=== PATIENT | female | born 1945 | race Caucasian/White ===

== ENCOUNTER 2018-12-27 12:48 | Emergency (ER) | payer MEDICARE, BC ==
[~2018-12-27] VITALS: Ht 165.1 cm; Wt 52.3 kg
[2018-12-27 13:02] VITALS: BP 124/88; Ht 165.1 cm; Wt 52.3 kg
[2018-12-27] MEDS ORDERED: NORVASC10 MG PO (13:05)
[2018-12-27] MEDS ORDERED: ATIVAN1 MG PO (13:05)
[2018-12-27] MEDS ORDERED: HYDROXYCHLOROQUINE PO (13:06)
[2018-12-27] MEDS ORDERED: TOPROL XL100 MG PO (13:07)
[2018-12-27] MEDS ORDERED: EFFEXOR75 MG PO (13:08)
[2018-12-27 13:59] LABS: BASOPHILS 0.4 % (0-2); HEMATOCRIT 43.3 % (36.0-48.0); HEMOGLOBIN 14.8 g/dL (12-16); IMMATURE GRANULOCYTES 0.2 % (0-5); LYMPHOCYTES 23.1 % (15-50); MCH 34.8 pg (26.0-34.0); MCHC 34.2 g/dL (31.0-37.0); MCV 101.9 fL (80.0-100.0); MEAN PLATELET VOLUME 9.4 fL (7.4-10.4); MONOCYTES 8.1 % (2-11); NEUTROPHILS 66.2 % (40-80); PLATELET COUNT 180 10x3/uL (130-400); RBC 4.25 10x6/uL (4.00-5.40); RDW 13.4 % (11.5-14.5); WBC 5.6 10x3/uL (4.8-10.8)
[2018-12-27 14:19] LABS: ALBUMIN 3.5 g/dL (3.4-5.0); ANION GAP 12.6 mmol/L (8-16); BILIRUBIN - TOTAL 0.49 mg/dL (0.2-1.3); CALCIUM 9.4 mg/dL (8.5-10.1); CARBON DIOXIDE 33.2 mmol/L (21.0-32.0); CREATININE - SERUM 0.8 mg/dL (0.6-1.3); MAGNESIUM - SERUM 1.7 mg/dL (1.8-2.4); POTASSIUM - SERUM 3.8 mmol/L (3.5-5.1); PROTEIN - SERUM 7.6 g/dL (6.4-8.2)
[2018-12-27 14:21] LABS: COLOR STRAW (YELLOW)
[2018-12-27 14:22] LABS: APPEARANCE CLEAR (CLEAR); BILIRUBIN NEGATIVE (NEGATIVE); GLUCOSE NEGATIVE (NEGATIVE); KETONE NEGATIVE (NEGATIVE); NITRITE NEGATIVE (NEGATIVE); PROTEIN NEGATIVE (NEGATIVE); SPECIFIC GRAVITY 1.005 (1.005-1.020); UROBILINOGEN NORMAL (NORMAL)
[2018-12-27] MEDS ORDERED: ABILIFY2 MG PO (15:18)
[2018-12-27 16:24] LABS: UDS - AMPHET NEGATIVE QUAL (NEGATIVE); UDS - BARB NEGATIVE QUAL (NEGATIVE); UDS - BENZO NEGATIVE QUAL (NEGATIVE); UDS - COCAINE NEGATIVE QUAL (NEGATIVE); UDS - OPIATE NEGATIVE QUAL (NEGATIVE); UDS - PCP NEGATIVE QUAL (NEGATIVE); UDS - THC NEGATIVE QUAL (NEGATIVE)
== END 2018-12-27 15:58 | disposition home or self-care (01) ==
LOC: D.ER 12:48
PROVIDERS: Family Medicine
DX: F41.9 Anxiety disorder, unspecified (principal); F32.9 Major depressive disorder, single episode, unspecified